=== PATIENT | female | born 1970 | race Caucasian/White ===

== ENCOUNTER 2018-06-09 10:00 | Emergency (ER) | payer OTHER ==
[2018-06-09 10:55] LABS: BASOPHILS % (AUTO) 0.5 %; EOSINOPHILS % (AUTO) 0.1 %; HGB - HEMOGLOBIN 14.7 g/dL (12.0-16.0); LYMPHOCYTES # (AUTO) 0.7 10^3/uL (1.5-3.5); LYMPHOCYTES % (AUTO) 6.9 %; MEAN CORPUSCULAR HEMOGLOBIN 31.9 pg (27.0-31.0); MEAN CORPUSCULAR HGB CONC 34.9 g/dL (32.0-36.0); MEAN CORPUSCULAR VOLUME 91.3 fL (81.0-99.0); MEAN PLATELET VOLUME 8.7 fL (7.9-10.8); MONOCYTES # (AUTO) 0.4 10^3/uL (0.0-1.0); MONOCYTES % (AUTO) 3.6 %; NEUTROPHILS # (AUTO) 9.5 10^3/uL (1.5-6.6); NEUTROPHILS % (AUTO) 88.9 %; PLT - PLATELET COUNT 224 10^3/uL (130-450); RED BLOOD COUNT 4.61 10^6/uL (4.20-5.40); RED CELL DISTRIBUTION WIDTH 13.2 % (12.0-15.0); WHITE BLOOD COUNT 10.7 x10^3/uL (4.8-10.8)
[2018-06-09 11:08] LABS: ALBUMIN 4.3 g/dL (3.2-5.5); ALBUMIN/GLOBULIN RATIO 1.3 (1.0-2.2); BILIRUBIN,TOTAL 0.6 mg/dL (0.2-1.0); CALCIUM 8.6 mg/dL (8.5-10.3); CREATININE 0.7 mg/dL (0.4-1.0); TOTAL PROTEIN 7.5 g/dL (6.7-8.2)
[2018-06-09 11:22] LABS: BILIRUBIN,URINE NEGATIVE (NEGATIVE); GLUCOSE, URINE (UA) NEGATIVE (NEGATIVE); KETONES,URINE (UA) NEGATIVE (NEGATIVE); LEUKOCYTE ESTERASE, URINE NEGATIVE (NEGATIVE); NITRITE,URINE NEGATIVE (NEGATIVE); OCCULT BLOOD,URINE TRACE-LYSE (NEGATIVE); PH,URINE 7.5 PH (5.0-7.5); PROTEIN,URINE NEGATIVE (NEGATIVE); UROBILINOGEN,URINE 0.2 (NORMAL) E.U./dL (NORMAL)
[2018-06-09 11:23] LABS: CLARITY,URINE CLEAR (CLEAR); HCG UR QUAL NEGATIVE
[2018-06-09] MEDS ORDERED: GI COCKTAIL 120 ML BOTTLE PO STA (12:52)
[2018-06-09] MEDS ORDERED: LIDOCAINE VISCOUS 2% 15 ML UDC MM STA (12:57)
[2018-06-09] MEDS ORDERED: MAG HYDROX/AL HYDROX/SIMETH 30 ML UDC PO STA (12:58)
--- NOTE | 2018-06-09 13:28 | XRAY Report ---
Reason: chest pain Procedure Date: 06/09/2018 Accession Number: [id number] / [id number] Procedure: XR - Chest 1 View X-Ray CPT Code: 54287 FULL RESULT: EXAM: CHEST RADIOGRAPHY EXAM DATE: 06/09/2018 01:16 PM. CLINICAL HISTORY: Chest pain. COMPARISON: None. TECHNIQUE: 1 view. FINDINGS: Lungs/Pleura: No focal opacities evident. No pleural effusion. No pneumothorax. Mediastinum: Within exam limitations, the cardiomediastinal contour is normal. Other: None. IMPRESSION: Negative chest RADIA
--- NOTE | 2018-06-09 13:55 | ED Physician Documentation ---
PD HPI CHEST PAIN - Stated complaint Stated Complaint: CHEST PX/ABDOM PX - Chief complaint Chief Complaint: Cardiac - History obtained from History obtained from: Patient - History of Present Illness Timing - onset: How many hours ago (11) Timing - duration: Hours (11) Timing - details: Abrupt onset, Still present Pain level max: 5 Pain level now: 5 Quality: Other (BURNING) Location: Epigastric Radiation: Abdominal Improved by: Nothing Worsened by: Other (NOTHING) Associated symptoms: Nausea. No: Shortness of air, Diaphoresis, Vomiting, Feeling faint / dizzy, General Weakness, Palpitations, Cough Similar symptoms before: Has not had sx before Recently seen: Not recently seen - Additional information Additional information: Pt states started having chest pain (pointing at her epigastrium) since 11 pm associated with nausea. Last meal was meatloaf, green beans and 2 beers. Denies any trauma, travel or recent illness. She took pepcid this morning and it did not help. Review of Systems Ten Systems: 10 systems reviewed and negative Constitutional: denies: Fever, Myalgias Nose: denies: Congestion Cardiac: reports: Chest pain / pressure. denies: Palpitations, Pedal edema, Calf pain Respiratory: denies: Dyspnea, Cough GI: reports: Abdominal Pain, Nausea. 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 - Present Medications Home Medications: Ambulatory Orders Medication Instructions Recorded Confirmed Pantoprazole [Protonix] 40 mg PO DAILY #30 tablet 06/09/18 Sucralfate [Carafate] 1 gm PO ACHS #60 tablet 06/09/18 - Allergies Allergies/Adverse Reactions: Allergies Allergy/AdvReac Type Severity Reaction Status Date / Time enoxaparin [From Lovenox] AdvReac Unknown Verified 06/09/18 10:21 - Social History Does the pt smoke?: No Smoking Status: Never smoker Does the pt drink ETOH?: No Does the pt have substance abuse?: No - Immunizations Immunizations are current?: No Immunizations: TDAP >10years/unknown PD ED PE NORMAL - Vitals Vital signs reviewed: Yes - General General: Alert and oriented X 3, No acute distress, Well developed/nourished - HEENT HEENT: Moist mucous membranes - Neck Neck: Supple, no meningeal sign - Cardiac Cardiac: RRR, No murmur - Respiratory Respiratory: No respiratory distress, Clear bilaterally - Abdomen Abdomen: Normal bowel sounds, Soft, Non distended, No organomegaly - Derm Derm: Normal color (Mild epigastric pain to deep palpation. No palpable mass), Warm and dry - Extremities Extremities: No deformity - Neuro Neuro: Alert and oriented X 3 - Psych Psych: Normal mood, Normal affect Results - Vitals Vitals: Vital Signs - 24 hr 06/09/18 06/09/18 06/09/18 10:19 12:04 13:00 Temperature 36.0 C L Heart Rate 66 56 L 57 L Respiratory 14 16 Rate Blood Pressure 139/96 H 135/83 H 138/84 H O2 Saturation 100 99 100 06/09/18 14:01 Temperature Heart Rate 67 Respiratory Rate Blood Pressure O2 Saturation 100 Oxygen O2 Source Room air - EKG (time done) 1009 Rate: Rate (enter#) (63) Rhythm: NSR [place]: Normal Intervals: Normal ID QRS: Normal Ischemia: Normal ST segments - Labs Labs: Laboratory Tests 06/09/18 06/09/18 06/09/18 10:48 10:48 10:48 WBC 10.7 RBC 4.61 Hgb 14.7 Hct 42.1 MCV 91.3 MCH 31.9 H MCHC 34.9 RDW 13.2 Plt Count 224 MPV 8.7 Neut # (Auto) 9.5 H Lymph # (Auto) 0.7 L [place] # (Auto) 0.4 Eos # (Auto) 0.0 Baso # (Auto) 0.0 Absolute Nucleated RBC 0.00 Nucleated RBC % 0.0 Sodium 134 L Potassium 4.6 Chloride 103 Carbon Dioxide 24 Anion Gap 7.0 BUN 17 Creatinine 0.7 Estimated GFR (MDRD) 90 Glucose 134 H Calcium 8.6 Total Bilirubin 0.6 AST 19 ALT 29 Alkaline Phosphatase 59 Troponin I < 0.04 Total Protein 7.5 Albumin 4.3 Globulin 3.2 Albumin/Globulin Ratio 1.3 Lipase 28 Urine Color Urine Clarity Urine pH Ur Specific [place] Urine Protein Urine Glucose (UA) Urine Ketones Urine Occult Blood Urine Nitrite Urine Bilirubin Urine Urobilinogen Ur Leukocyte Esterase Ur Microscopic Review Urine Culture Comments Urine HCG, Qual 06/09/18 06/09/18 11:05 13:09 WBC RBC Hgb Hct MCV MCH MCHC RDW Plt Count MPV Neut # (Auto) Lymph # (Auto) [place] # (Auto) Eos # (Auto) Baso # (Auto) Absolute Nucleated RBC Nucleated RBC % Sodium Potassium Chloride Carbon Dioxide Anion Gap BUN Creatinine Estimated GFR (MDRD) Glucose Calcium Total Bilirubin AST ALT Alkaline Phosphatase Troponin I < 0.04 Total Protein Albumin Globulin Albumin/Globulin Ratio Lipase Urine Color YELLOW Urine Clarity CLEAR Urine pH 7.5 Ur Specific [place] 1.020 Urine Protein NEGATIVE Urine Glucose (UA) NEGATIVE Urine Ketones NEGATIVE Urine Occult Blood TRACE-LYSE Urine Nitrite NEGATIVE Urine Bilirubin NEGATIVE Urine Urobilinogen 0.2 (NORMAL) Ur Leukocyte Esterase NEGATIVE Ur Microscopic Review NOT INDICATED Urine Culture Comments NOT INDICATED Urine HCG, Qual NEGATIVE PD MEDICAL DECISION MAKING - ED course Complexity details: re-evaluated patient (1259 Informed of test results. Agreed to second troponin. Requesting for a GI cocktail. 1352 States GI cocktail decreased the pain. Denies any cp/sob. Wants to go home. Discussed diet, meds for GERD/PUD prevention, avoiding certain foods and nsaids, follow up w/ PCP for outpt stress test and GI referral. Pt expressed understanding. Heart score 0. Al though pt has hx of leg DVT from and Factor V deficiency pt is active, no dyspnea, hypoxia nor tachycardia, low probability for p.e.), considered differential (gastritis, PUD, ACS), d/w patient Departure - Departure Disposition: 01 Home, Self Care Clinical Impression: Epigastric abdominal pain Condition: Good Instructions: ED Chest Pain NonCardiac, ED Epigastric Pain UKO Prescriptions: Pantoprazole [Protonix] 40 mg PO DAILY #30 tablet Sucralfate [Carafate] 1 gm PO ACHS #60 tablet Comments: FOLLOW UP W/ YOUR PCP FOR REEVALUATION AND REFERRAL FOR OUTPATIENT STRESS TEST AND G.I. REFERRAL FOR REEVALUATION AND EGD. TAKE THE MEDS PRESCRIBED. AVOID SPICY, FRIED FOODS, CAFFEINE, ALCOHOL, NSAIDS (SUCH MOTRIN, ETC). IF WORSE RETURN TO THE E.R. Discharge Date/Time: 06/09/18 14:18
[2018-06-09 14:02] VITALS: BP 138/84
== END 2018-06-09 14:18 | disposition home or self-care (01) ==
LOC: ED 10:00
DX: R10.13 Epigastric pain (principal); Z86.718 Personal history of other venous thrombosis and embolism
CPT/HCPCS: 36415; 71045; 80053; 81003; 81025; 83690; 84484; 85025; 93005; 99284; A9270; 81001; 87086

== ENCOUNTER 2018-08-20 08:46 | Emergency (ER) | payer OTHER ==
[2018-08-20 10:28] LABS: BILIRUBIN,URINE NEGATIVE (NEGATIVE); GLUCOSE, URINE (UA) NEGATIVE (NEGATIVE); KETONES,URINE (UA) NEGATIVE (NEGATIVE); LEUKOCYTE ESTERASE, URINE NEGATIVE (NEGATIVE); NITRITE,URINE NEGATIVE (NEGATIVE); OCCULT BLOOD,URINE TRACE-INTA (NEGATIVE); PH,URINE 6.5 PH (5.0-7.5); PROTEIN,URINE NEGATIVE (NEGATIVE); UROBILINOGEN,URINE 0.2 (NORMAL) E.U./dL (NORMAL)
[2018-08-20 10:33] LABS: CLARITY,URINE CLEAR (CLEAR)
[2018-08-20] MEDS ORDERED: ONDANSETRON 4 MG/2 ML VIAL IVP STA (10:38)
[2018-08-20] MEDS ORDERED: SODIUM CHLORIDE 0.9% 1,000 ML IV ONE (10:38)
[2018-08-20] MEDS ORDERED: HYDROmorphone 1 MG/ML CARPUJECT IVP STA (10:38)
[2018-08-20 10:40] LABS: BASOPHILS % (AUTO) 0.2 %; HGB - HEMOGLOBIN 14.6 g/dL (12.0-16.0); LYMPHOCYTES # (AUTO) 0.5 10^3/uL (1.5-3.5); LYMPHOCYTES % (AUTO) 3.4 %; MEAN CORPUSCULAR HEMOGLOBIN 31.2 pg (27.0-31.0); MEAN CORPUSCULAR HGB CONC 34.6 g/dL (32.0-36.0); MEAN CORPUSCULAR VOLUME 90.2 fL (81.0-99.0); MEAN PLATELET VOLUME 8.3 fL (7.9-10.8); MONOCYTES # (AUTO) 0.4 10^3/uL (0.0-1.0); MONOCYTES % (AUTO) 2.7 %; NEUTROPHILS % (AUTO) 93.7 %; PLT - PLATELET COUNT 259 10^3/uL (130-450); RED BLOOD COUNT 4.66 10^6/uL (4.20-5.40)
--- NOTE | 2018-08-20 10:41 | ED Physician Documentation ---
History of Present Illness - Stated complaint Stated Complaint: ABD PX/MED REFILL - Chief complaint Chief Complaint: Abd Pain - Additonal information Additional information: hx from pt 48 f upper abd pain after eating for months seen for same dx gastritis iunc last night today after eating pizza not relieved with zantac pepcid pepto subj chills + NV doubts preg hx factor V leiden - no CP or SOA Review of Systems Constitutional: reports: Fever Cardiac: denies: Chest pain / pressure Respiratory: denies: Dyspnea GI: reports: Abdominal Pain, Nausea, Vomiting. 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 - Present Medications Home Medications: Ambulatory Orders Medication Instructions Recorded Confirmed Amox/Clav 875/125 [Augmentin] 1 each PO Q12H #14 tablet 08/20/18 Hydrocodone/Acetaminophen 1 each PO Q6H PRN #10 tablet 08/20/18 [Hydrocodon-Acetaminophen 5-325] Ondansetron Odt [Zofran] 4 mg TL Q6H PRN #10 tablet 08/20/18 Ranitidine HCl [Heartburn Relief] 150 mg PO BID 08/20/18 08/20/18 - Allergies Allergies/Adverse Reactions: Allergies Allergy/AdvReac Type Severity Reaction Status Date / Time enoxaparin [From Lovenox] AdvReac Unknown Verified 08/20/18 08:57 - Social History Does the pt smoke?: No Smoking Status: Never smoker Does the pt drink ETOH?: No Does the pt have substance abuse?: No - Immunizations Immunizations are current?: No Immunizations: TDAP >10years/unknown PD ED PE NORMAL - Vitals Vital signs reviewed: Yes - Cardiac Cardiac: RRR - Respiratory Respiratory: No respiratory distress - Abdomen Abdomen: Soft, Other (+ TTP RUQ WITH + MURPHYS) - Back Back: No CVA TTP - Derm Derm: Normal color - Extremities Extremities: No deformity - Neuro Neuro: Alert and oriented X 3 Results - Vitals Vitals: Vital Signs - 24 hr 08/20/18 08:53 Temperature 36.8 C Heart Rate 63 Respiratory 16 Rate Blood Pressure 142/91 H O2 Saturation 100 Oxygen O2 Source Room air - Labs Labs: Laboratory Tests 08/20/18 08/20/18 08/20/18 09:57 10:30 10:30 WBC 16.0 H RBC 4.66 Hgb 14.6 Hct 42.1 MCV 90.2 MCH 31.2 H MCHC 34.6 RDW 13.0 Plt Count 259 MPV 8.3 Neut # (Auto) 15.0 H Lymph # (Auto) 0.5 L [place] # (Auto) 0.4 Eos # (Auto) 0.0 Baso # (Auto) 0.0 Absolute Nucleated RBC 0.00 Nucleated RBC % 0.0 Sodium 134 L Potassium 4.0 Chloride 100 L Carbon Dioxide 26 Anion Gap 8.0 BUN 16 Creatinine 0.6 Estimated GFR (MDRD) 107 Glucose 141 H Calcium 8.8 Total Bilirubin 0.7 AST 31 ALT 43 Alkaline Phosphatase 65 Total Protein 8.0 Albumin 4.6 Globulin 3.4 Albumin/Globulin Ratio 1.4 Lipase 25 Serum HCG, Qual Urine Color YELLOW Urine Clarity CLEAR Urine pH 6.5 Ur Specific [place] >=1.030 H Urine Protein NEGATIVE Urine Glucose (UA) NEGATIVE Urine Ketones NEGATIVE Urine Occult Blood TRACE-INTA Urine Nitrite NEGATIVE Urine Bilirubin NEGATIVE Urine Urobilinogen 0.2 (NORMAL) Ur Leukocyte Esterase NEGATIVE Ur Microscopic Review NOT INDICATED Urine Culture Comments NOT INDICATED 08/20/18 10:30 WBC RBC Hgb Hct MCV MCH MCHC RDW Plt Count MPV Neut # (Auto) Lymph # (Auto) [place] # (Auto) Eos # (Auto) Baso # (Auto) Absolute Nucleated RBC Nucleated RBC % Sodium Potassium Chloride Carbon Dioxide Anion Gap BUN Creatinine Estimated GFR (MDRD) Glucose Calcium Total Bilirubin AST ALT Alkaline Phosphatase Total Protein Albumin Globulin Albumin/Globulin Ratio Lipase Serum HCG, Qual NEGATIVE Urine Color Urine Clarity Urine pH Ur Specific [place] Urine Protein Urine Glucose (UA) Urine Ketones Urine Occult Blood Urine Nitrite Urine Bilirubin Urine Urobilinogen Ur Leukocyte Esterase Ur Microscopic Review Urine Culture Comments - Rads (name of study) ruq sono Radiology: See rad report (acute beverly) ruq ultrasound Radiology: See rad report (acute beverly) PD MEDICAL DECISION MAKING - ED course ED course: acute beverly elev WBC but tolerating PO and pain controlled tomorrow is niranjan will dc on PO ab and low fat diet and follow up surgery clinic Wed return if worse pt and family happy with plan Departure - Departure Disposition: 01 Home, Self Care Clinical Impression: Cholecystitis Condition: Good Instructions: ED Gallbladder Infec Conf Follow-Up: Randolph Thomas MD [Provider Admit Priv/Credential] - Prescriptions: Amox/Clav 875/125 [Augmentin] 1 each PO Q12H #14 tablet Hydrocodone/Acetaminophen [Hydrocodon-Acetaminophen 5-325] 1 each PO Q6H PRN #10 tablet PRN Reason: Severe Pain Ondansetron Odt [Zofran] 4 mg TL Q6H PRN #10 tablet PRN Reason: Nausea / Vomiting Comments: You have gallstones and your gallbladder has become infected. You will need to have your gallbladder taken out You got antibiotics in the IV And you pain is controlled And you can keep fluids down So it seems reasonable to let you go home for Niranjan on oral antibiotics and a strict low fat diet. But you need to see the surgeon this week - call Wed to schedule. Return to the ER if worse in any way - I will be here all day tomorrow Forms: Activity restrictions
[2018-08-20 10:53] LABS: ALBUMIN 4.6 g/dL (3.2-5.5); ALBUMIN/GLOBULIN RATIO 1.4 (1.0-2.2); BILIRUBIN,TOTAL 0.7 mg/dL (0.2-1.0); CALCIUM 8.8 mg/dL (8.5-10.3); CREATININE 0.6 mg/dL (0.4-1.0)
[2018-08-20 11:20] LABS: HCG,QUALITATIVE BLOOD NEGATIVE
--- NOTE | 2018-08-20 12:16 | Ultrasound Report ---
Reason: ruq pain after pizza Procedure Date: 08/20/2018 Accession Number: [id number] / [id number] Procedure: US - Abdomen Limited CPT Code: FULL RESULT: EXAM: ABDOMEN ULTRASOUND LIMITED, RUQ EXAM DATE: 08/20/2018 11:41 AM. CLINICAL HISTORY: RUQ pain after pizza. COMPARISON: None. TECHNIQUE: Real-time scanning was performed with static images obtained. FINDINGS: Liver: Normal parenchymal echotexture. Right lobe measures up to 16.8 cm. Main portal vein flow: Hepatopetal. Gallbladder: Gallbladder is filled with stones and demonstrates wall thickening of up to 5 mm with a positive sonographic Plasencia's sign despite premedication with opioids. Biliary System: CBD measures 4 mm. No intrahepatic or extrahepatic ductal dilatation. Other: None. IMPRESSION: Ultrasound findings are concerning for cholecystitis. CRITICAL RESULT: The findings were discussed with Dr. Desai on 08/20/2018 at 12:15 PM. DENIS
[2018-08-20] MEDS ORDERED: cefOXitin 1 GM in SODIUM CHLORIDE 0.9% MINIBAG 100 ML IV STA (12:30)
[2018-08-20 13:20] VITALS: BP 134/78
== END 2018-08-20 13:22 | disposition home or self-care (01) ==
LOC: ED 08:46
DX: K81.9 Cholecystitis, unspecified (principal); D72.829 Elevated white blood cell count, unspecified; R11.2 Nausea with vomiting, unspecified; Z86.718 Personal history of other venous thrombosis and embolism
CPT/HCPCS: 36415; 76705; 80053; 81003; 83690; 84703; 85025; 96361; 96365; 96375; 99283; J1170; 81001; 87086

== ENCOUNTER 2018-09-07 07:23 | Day surgery (SDC) | payer OTHER ==
[~2018-09-07 07:23] MED LIST: BUPIVACAINE 0.5% PF 30 ML VIAL ONE; HEPARIN 5,000 UNIT/ML VIAL ONE; ceFAZolin 2 GM/50 ML 2 GM/50 ML BAG IV ONE
[2018-09-07] MEDS ORDERED: LACTATED RINGERS 1,000 ML IV ONE ×2 (07:29→10:34)
[2018-09-07] MEDS ORDERED: SCOPOLAMINE PATCH TOP ONE (07:31)
--- NOTE | 2018-09-07 08:32 | ANESTHESIA ---
Pre-Anesthesia VS, & Labs - Diagnosis cholecystitis - Procedure Laparoscopic cholecystectomy Vital Signs: Temp Pulse Resp BP Pulse Ox 36.7 C 69 16 129/93 H 98 09/07/18 07:30 09/07/18 07:30 09/07/18 07:30 09/07/18 07:30 09/07/18 07:30 Height 5 ft 7 in Weight (kg) 84 kg Body Mass Index 29.4 - NPO >8 hours - Is Patient ?: Waiver signed Home Medications and Allergies Home Medications: Ambulatory Orders No Known Home Medications 09/03/18 No Known Home Medications 09/03/18 Allergies/Adverse Reactions: Allergies Allergy/AdvReac Type Severity Reaction Status Date / Time enoxaparin [From Lovenox] AdvReac elevated Verified 09/03/18 13:26 liver enzymes, passed out minocycline AdvReac Dizziness Verified 09/03/18 13:26 Anes History & Medical History - Anesthetic History Anesthesia Complications: reports: Post-Operative Nausea/Vomiting - Medical History Cardiovascular: reports: Deep vein thrombosis Pulmonary: reports: None Gastrointestinal: reports: Cholelithiasis Urinary: reports: None Musculoskeletal: reports: None Endocrine/Autoimmune: reports: None Skin: reports: None Smoking Status: Never smoker - Surgical History Gynecologic: section Exam General: Alert Dental: WNL Mouth Opening: Greater than 4 Fingerbreadths Neck Mobility: Normal Mallampati classification: II Thyromental Distance: greater than 6 cm Respiratory: Lungs clear Cardiovascular: Regular rate, Normal S1, Normal S2 Plan Anesthesia Type: General Consent for Procedure(s) Verified and Reviewed: Yes Code Status: Attempt Resuscitation ASA classification: 2-Mild systemic disease Is this case an emergency?: No
[2018-09-07] MEDS ORDERED: BUPIVACAINE 0.5% PF 30 ML VIAL SUBQ ONE ×2 (09:31)
[2018-09-07] MEDS ORDERED: GLYCOPYRROLATE 1 MG/5 ML VIAL IVP ONE (09:40)
[2018-09-07] MEDS ORDERED: MIDAZOLAM 2 MG/2 ML VIAL IVP ONE (09:40)
[2018-09-07] MEDS ORDERED: ACETAMINOPHEN 1,000 MG/100 ML 100 ML IV ONE (09:40)
[2018-09-07] MEDS ORDERED: NEOSTIGMINE 1 MG/1 ML 10 ML MDV IVP ONE (09:40)
[2018-09-07] MEDS ORDERED: ROCURONIUM 50 MG/5 ML VIAL IVP ONE (09:40)
[2018-09-07] MEDS ORDERED: DEXAMETHASONE 4 MG/ML VIAL IVP ONE (09:40)
[2018-09-07] MEDS ORDERED: PROPOFOL 200 MG/20 ML VIAL IVP ONE (09:40)
[2018-09-07] MEDS ORDERED: KETOROLAC 30 MG/ML VIAL IVP ONE (09:40)
[2018-09-07] MEDS ORDERED: ONDANSETRON 4 MG/2 ML VIAL IVP ONE (09:40)
[2018-09-07] MEDS ORDERED: HYDROcod/ACETAM 5/325 MG TABLET PO PRN (10:43)
--- NOTE | 2018-09-07 10:43 | IMMEDIATE POSTOPERATIVE NOTE ---
Immediate Postoperative Note - Procedure Note Procedure Date: 09/07/18 Pre-Op Diagnosis: chronic cholecystitis Procedure: lap [place] Post-Op Diagnosis: same Primary Surgeon: nereida Anesthesia Type: General ET tube Complications: No complications Estimated Blood Loss (in cc): 20 Specimens and Cultures: gallbladder Plan of Care: discharge home
[2018-09-07] MEDS: HYDROmorphone 1 MG/ML CARPUJECT ONE ×3 (11:04→11:22)
[2018-09-07] MEDS ORDERED: ONDANSETRON 4 MG/2 ML VIAL ONE (11:09)
--- NOTE | 2018-09-07 11:17 | OPERATIVE REPORT ---
DATE OF SERVICE: 09/07/2018 Physician: Shahbaz Bueno MD SURGEON: Shahbaz Bueno M.D. PREOPERATIVE DIAGNOSIS: Chronic cholecystitis. POSTOPERATIVE DIAGNOSIS: Chronic cholecystitis. PROCEDURE PERFORMED: Laparoscopic cholecystectomy. INDICATIONS FOR PROCEDURE: The patient is a 48-year-old woman who came to clinic stating that she has had multiple ER visits for attacks of cholecystitis, requesting cholecystectomy. PROCEDURE IN DETAIL: The risks and benefits were explained to the patient. She agreed to the procedure. She was taken to the operating room, given general anesthesia and intubated. The abdomen was prepped and draped. Timeout was performed, and everyone in the room agreed to the procedure. We began by making a 12 mm supraumbilical incision, and carried this down to inside the peritoneal cavity, inserted a Nav trocar and secured it in place. We insufflated the abdomen with 15 mmHg, then inserted three more 5 mm trocars under vision of the camera, one below the xiphoid process, and two below the right costal margin. We identified the gallbladder, which was very distended and could not be grasped; therefore, we drained it using a needle. We obtained clear fluid consistent with hydrops. We were then able to retract the gallbladder, and dissect out the cystic duct and artery. Once a critical view was obtained, these structures were doubly clipped and ligated. The gallbladder was then removed off the liver bed using monopolar electricity. The gallbladder was found to be very intrahepatic, and this portion of the procedure took some time. However, the gallbladder was removed without perforation, and placed in an EndoCatch bag and sent to pathology. There was no residual bleeding seen at the surgical site. It was lavaged, dried, and then all four trocars were removed under vision from the camera. The fascia of the umbilical port site was closed using 2 Vicryl stitches, since the fascia and skin incisions had to be enlarged to accommodate the gallbladder, which was very full of stones. The skin of all four incisions was then injected with Marcaine, as well as the fascia, and the skin was closed using 4-0 Monocryl and Dermabond. This terminated the procedure. The patient tolerated it well. She was extubated in the operating room in stable condition. INSTRUMENT/LAP COUNTS: Correct. ESTIMATED BLOOD LOSS: 20 mL. SPECIMEN: Gallbladder. COMPLICATIONS: None. PLAN: To be discharged home later today. TD: 09/07/2018 10:57 MTDLalitha
[2018-09-07 12:26] VITALS: BP 117/70
== END 2018-09-07 07:24 | disposition home or self-care (01) ==
LOC: SDS 07:23
PROVIDERS: ATTEND Surgery
PROC: 0FT44ZZ Resection of Gallbladder, Percutaneous Endoscopic Approach (ICD-10-PCS; principal; 2018-09-07 08:30)
DX: K80.10 Calculus of gallbladder with chronic cholecystitis without obstruction (principal); Z79.891 Long term (current) use of opiate analgesic; Z86.718 Personal history of other venous thrombosis and embolism
CPT/HCPCS: 47562; J0131; J0690; J1170; J3490; J7120